=== PATIENT | male | born 2000 | race Two or more races ===

== ENCOUNTER 2023-07-06 20:10 | Emergency (ER) | payer OTHER ==
[~2023-07-06] VITALS: Ht 182.9 cm; Wt 68.0 kg
[2023-07-06 20:44] VITALS: TEMP 99.1
[2023-07-06] MEDS ORDERED: ONDANSETRON HCL/PF 4 MG/2 ML VIAL IVP ONE (21:00)
[2023-07-06] MEDS: IV NS 0.9% 1,000 ML BAG IV ONE (21:13)
[2023-07-06] MEDS ORDERED: HALOPERIDOL LACTATE INJ 5 MG/ML VIAL ONE (21:14)
[2023-07-06 21:28] LABS: BASOPHILS % (AUTO) 0.2 % (0.0-2.0); HEMATOCRIT 51 % (39-51); HEMOGLOBIN 16.9 g/dL (13.5-17.5); LYMPHOCYTES # (AUTO) 0.7 K/uL (0.8-4.8); LYMPHOCYTES % (AUTO) 8.5 % (20.0-44.0); MEAN CORPUSCULAR HEMOGLOBIN 30 PG (26.0-33.0); MEAN CORPUSCULAR HGB CONC 33 g/dl (31.0-36.0); MEAN CORPUSCULAR VOLUME 91 fL (80-96); MONOCYTES # (AUTO) 0.4 K/uL (0.1-1.30); MONOCYTES % (AUTO) 4.9 % (2.0-12.0); NEUTROPHILS # (AUTO) 6.9 K/uL (1.8-8.9); NEUTROPHILS % (AUTO) 86.4 % (43.0-81.0); PLATELET COUNT (AUTO) 342 K/uL (150-450); RED CELL DISTRIBUTION WIDTH 14.3 % (11.5-15.0)
[2023-07-06] MEDS: HALOPERIDOL LACTATE INJ 5 MG/ML VIAL IV ONE (21:28)
[2023-07-06 21:45] LABS: ALBUMIN 4.7 g/dL (3.4-5.0); BILIRUBIN,DIRECT 0.1 mg/dL (0.0-0.2); BILIRUBIN,TOTAL 0.5 mg/dL (0.2-1.0); CALCIUM, SERUM 9.7 mg/dL (8.5-10.1); CREATININE 0.9 mg/dL (0.6-1.3); POTASSIUM 3.5 mmol/L (3.5-5.1); TOTAL PROTEIN, SERUM 9.6 g/dL (6.4-8.2)
[2023-07-07] MEDS ORDERED: ONDA4TAB5 PO (00:12)
[2023-07-07 00:18] VITALS: BP 119/81; O2SAT 97
== END 2023-07-07 00:19 | disposition home or self-care (01) ==
LOC: ER 20:17
DX: R11.2 Nausea with vomiting, unspecified (principal); Z88.8 Allergy status to other drugs, medicaments and biological substances
CPT/HCPCS: 99284; 96374; 96361; 93005; 85025; 80048; 83690; 80076; 36415; J1630; J7030

== ENCOUNTER 2024-04-12 19:50 | Emergency (ER) | payer MEDICAID, OTHER ==
[~2024-04-12] VITALS: Ht 185.4 cm; Wt 68.9 kg
[~2024-04-12 19:50] MED LIST: ONDA4TAB5 PO
[2024-04-12] MEDS ORDERED: ONDANSETRON HCL/PF 4 MG/2 ML VIAL ONE (20:28)
[2024-04-12] MEDS: ONDANSETRON HCL/PF 4 MG/2 ML VIAL IVP ONE (20:30)
[2024-04-12] MEDS: IV NS 0.9% 1,000 ML BAG IV ONE (20:30)
[2024-04-12 20:37] LABS: BASOPHILS # (AUTO) 0.1 K/uL (0.0-0.2); BASOPHILS % (AUTO) 0.8 % (0.0-2.0); EOSINOPHILS % (AUTO) 0.3 % (0.0-6.0); HEMATOCRIT 42 % (39-51); HEMOGLOBIN 14.1 g/dL (13.5-17.5); LYMPHOCYTES # (AUTO) 1.3 K/uL (0.8-4.8); LYMPHOCYTES % (AUTO) 19.4 % (20.0-44.0); MEAN CORPUSCULAR HEMOGLOBIN 30 PG (26.0-33.0); MEAN CORPUSCULAR HGB CONC 34 g/dl (31.0-36.0); MEAN CORPUSCULAR VOLUME 90 fL (80-96); MONOCYTES # (AUTO) 0.6 K/uL (0.1-1.30); NEUTROPHILS # (AUTO) 4.8 K/uL (1.8-8.9); NEUTROPHILS % (AUTO) 70.5 % (43.0-81.0); PLATELET COUNT (AUTO) 277 K/uL (150-450); RED BLOOD CELL COUNT(AUTO) 4.64 MIL/uL (4.5-6.0); RED CELL DISTRIBUTION WIDTH 13.5 % (11.5-15.0); WHITE BLOOD COUNT (AUTO) 6.8 K/uL (4.3-11.0)
[2024-04-12] MEDS ORDERED: METOCLOPRAMIDE HCL 10 MG/2 ML VIAL ONE (20:38)
[2024-04-12] MEDS: METOCLOPRAMIDE HCL 10 MG/2 ML VIAL IV ONE (20:46)
[2024-04-12 20:49] LABS: CALCIUM, SERUM 8.9 mg/dL (8.5-10.1); CREATININE 0.6 mg/dL (0.6-1.3); POTASSIUM 2.9 mmol/L (3.5-5.1)
[2024-04-12 20:54] LABS: INR 1.24 (0.91-1.10); PARTIAL THROMBOPLASTIN TIME 26.2 SEC (24.3-34.3)
[2024-04-12 20:56] LABS: LACTIC ACID 0.6 mmol/L (0.4-2.0)
[2024-04-12 21:03] LABS: ALBUMIN 3.9 g/dL (3.4-5.0); BILIRUBIN,DIRECT 0.2 mg/dL (0.0-0.2); BILIRUBIN,TOTAL 0.8 mg/dL (0.2-1.0); TOTAL PROTEIN, SERUM 7.6 g/dL (6.4-8.2)
[2024-04-12] MEDS: HALOPERIDOL LACTATE INJ 5 MG/ML VIAL IV ONE (21:30)
[2024-04-12] MEDS ORDERED: HALOPERIDOL LACTATE INJ 5 MG/ML VIAL ONE (21:32)
[2024-04-12] MEDS ORDERED: POTASSIUM CL. PREMIX PERIPHER. 50 ML ONE (21:32)
[2024-04-12] MEDS: POTASSIUM CL. PREMIX PERIPHER. 50 ML IV SCH (21:45)
[2024-04-12] MEDS ORDERED: PROCHLORPERAZINE EDISYLATE 10 MG/2 ML VIAL ONE (21:47)
[2024-04-12] MEDS: PROCHLORPERAZINE EDISYLATE 10 MG/2 ML VIAL IVP ONE (21:52)
[2024-04-12] MEDS ORDERED: POTASSIUM CL. PREMIX PERIPHER. 150 ML ONE (22:36)
[2024-04-13] MEDS ORDERED: ONDANSETRON HCL/PF 4 MG/2 ML VIAL ONE (01:56)
[2024-04-13] MEDS: ONDANSETRON HCL/PF 4 MG/2 ML VIAL IV ONE (02:00)
[2024-04-13 09:00] VITALS: TEMP 98
[2024-04-13 10:00] VITALS: BP 147/99; O2SAT 96
== END 2024-04-13 10:32 ==
LOC: ER 19:52
DX: R11.2 Nausea with vomiting, unspecified (principal); R10.9 Unspecified abdominal pain; E87.6 Hypokalemia; F17.200 Nicotine dependence, unspecified, uncomplicated; Z88.5 Allergy status to narcotic agent; Z20.822 Contact with and (suspected) exposure to COVID-19
CPT/HCPCS: 99285; 96365; 96375; 96366; 96361; 87426; 93005; 85025; 80048; 83605; 83690; 80076; 36415 ×2; 85730; 96376; 84132; J0780; J1630; J2765; J2405 ×2; J7030 ×2; J7040; J3480 ×2